=== PATIENT | male | born 1990 | race American Indian/Alaskan Native ===

== ENCOUNTER 2017-10-11 18:18 | Emergency (ER) | payer SELFPAY ==
[2017-10-11 18:27] VITALS: BP 147/91
--- NOTE | 2017-10-12 00:16 | Emergency Department Report ---
Abscess Boil HPI - HPI Chief Complaint: Skin/Abscess/Foreign Body Stated Complaint: ABSCESS Time Seen by Provider: 10/12/17 00:04 Duration: 3 Days Location: Upper Extremity (right axilla) Severity: Moderate History: Yes Pain, Yes Purulent Drainage, No Fever, No Numbness, No Foreign Body , No Previous History, No Insect Bite HPI: This is a 26-year-old -[place] male who presents with abscess to right axilla for 3 days. Patient reports shaving under arms 3 days ago and feeling small bump initially under right arm. He thought it was a hair bumpt that would resolve on it's own but it never did. This morning he noticed the bump under right axilla was swollen, erythematous, and pus drainage. It is very painful to touch. Pain is 10 out of 10 and worse with palpation. Denies fever, numbness or tingling, and foreign body sensation. Home Medications: Previous Rx's Medication Instructions Recorded Last Taken Type Ibuprofen 800 mg PO Q6H PRN #20 tablet 10/12/17 Unknown Rx Sulfamethoxazole/Trimethoprim 1 each PO BID 10 Days #20 tablet 10/12/17 Unknown Rx [Bactrim DS TAB] Allergies/Adverse Reactions: Allergies Allergy/AdvReac Type Severity Reaction Status Date / Time No Known Allergies Allergy Unverified 10/11/17 18:23 ED Review of Systems ROS: Stated complaint: ABSCESS Other details as noted in HPI Constitutional: denies: chills, fever Respiratory: denies: cough, shortness of breath, wheezing Cardiovascular: denies: chest pain, palpitations Gastrointestinal: denies: abdominal pain, nausea, diarrhea Skin: lesions (nodule on right axilla). denies: rash Neurological: denies: headache, weakness, paresthesias Psychiatric: denies: anxiety, depression ED Past Medical Hx - Past Medical History Previous Medical History?: No - Surgical History Past Surgical History?: No - Social History Smoking Status: Never Smoker Substance Use Type: None, Alcohol - Medications Home Medications: Home Medications Medication Instructions Recorded Confirmed Last Taken Type Ibuprofen 800 mg PO Q6H PRN #20 tablet 10/12/17 Unknown Rx Sulfamethoxazole/Trimethoprim 1 each PO BID 10 Days #20 tablet 10/12/17 Unknown Rx [Bactrim DS TAB] ED Abscess Boil Physical Exam - Exam General: Vital signs noted. No distress. Alert and acting appropriately. Front/Back of Body, Lg (Color): 1 - 2 cm erythematous nodule on right axilla, tender, purulent discharge, fluctuance, no surrounding cellulitis Size: 2 cm Exam: Yes Tenderness, Yes Fluctuance, Yes Normal Neurologic Exam, Yes Normal Circulation, No Surrounding Cellulites/Erythema, No Lymphangitis, No Crepitation , No Heart Murmur I & D Note - I & D Note I & D Note: The area was prepared and draped in the usual, sterile manner. The site was anesthetized with 2% lidocaine without epinephrine. A linear incision along the local skin lines was made and the purulent material expressed. The abcess was explored thoroughly and sequestered pockets were opened. Bleeding was minimal. Packing: idodoform. Followup: The patient tolerated the procedure well without complications. Standard post-procedure care was explained and return precautions are given. ED Course Vital Signs 10/11/17 18:23 Temperature 98.6 F Pulse Rate 89 Respiratory 18 Rate Blood Pressure 147/91 O2 Sat by Pulse 99 Oximetry Critical care attestation.: If time is entered above; I have spent that time in minutes in the direct care of this critically ill patient, excluding procedure time. ED Medical Decision Making - Medical Decision Making This is a 26 y.o. male that presents with a painful abscess to right axilla for 3 days. No history of prior abscess. Patient is stable and examined by me. Physical assessment of 2 cm fluctuance nodule to right axilla. No acute signs of distress noted. Given norco 7.5 mg po once in ER. I&D refer to note. Discussed plan to start bactrim DS and ibuprofen with patient. Educated patient on follow up plan to have packing removed and wound reassessed in 2-3 days. Educated on signs and symptoms of infection. Patient agrees to ED plan of care. Discharged home and follow up with PCP in 2-3 days. ED Disposition Clinical Impression: Abscess of axilla, right Disposition: DC- TO HOME OR SELFCARE Is pt being admited?: No Does the pt Need Aspirin: No Condition: Stable Instructions: Abscess (ED), Abscess Incision and Drainage (ED) Additional Instructions: Keep packing in place for 2-3 days. Return to ER or f/u with PCP to have packing removed and wound reassessed. Complete full round of bactrim DS antibiotic as prescribed. Follow up with PCP or ER in 2-3 days. Return to ER if foul smelling discharge, swelling, or severe pain to wound. Prescriptions: Ibuprofen 800 mg PO Q6H PRN #20 tablet PRN Reason: Pain Sulfamethoxazole/Trimethoprim [Bactrim DS TAB] 1 each PO BID 10 Days #20 tablet [facility]errals: [facility] [Outside] - 3-5 Days [facility] [Outside] - 3-5 Days [facility] [Outside] - 3-5 Days Forms: Work/School Release Form(ED) Time of Disposition: 01:28 Print Language: ARMENIAN
[2017-10-12] MEDS ORDERED: XYLOCAINE 2% INFILTRATI ONE (00:18)
[2017-10-12] MEDS ORDERED: ULTRAM PO ONE (00:18)
== END 2017-10-12 01:30 | disposition home or self-care (01) ==
LOC: ED 18:18
DX: L02.411 Cutaneous abscess of right axilla (principal)

== ENCOUNTER 2017-10-14 18:20 | Emergency (ER) | payer SELFPAY ==
--- NOTE | 2017-10-15 00:30 | Emergency Department Report ---
- General Chief Complaint: Skin/Abscess/Foreign Body Stated Complaint: ABCESS Time Seen by Provider: 10/14/17 23:44 Source: patient Mode of arrival: Ambulatory Limitations: No Limitations - History of Present Illness Initial Comments: 26-year-old returns to the emergency room to have this packing removed from right under arm. Patient was seen here on 10/12/2017 and had an abscess incision and drainage with packing. Patient was then placed on Bactrim which he reported had dropped all of them in the setting. Therefore patient has not taken any antibiotics as prescribed. Patient is not taking pain medication as prescribed. He is to be taken every 6-8 hours as needed for pain. -: days(s) (3) - Related Data Previous Rx's Medication Instructions Recorded Last Taken Type Ibuprofen 800 mg PO Q6H PRN #20 tablet 10/12/17 Unknown Rx Sulfamethoxazole/Trimethoprim 1 each PO BID 10 Days #20 tablet 10/15/17 Unknown Rx [Bactrim DS TAB] Allergies Allergy/AdvReac Type Severity Reaction Status Date / Time No Known Allergies Allergy Unverified 10/11/17 18:23 ED Review of Systems ROS: Stated complaint: ABCESS Other details as noted in HPI Constitutional: denies: chills, fever Skin: other (right axillary packing) ED Past Medical Hx - Past Medical History Previous Medical History?: No - Surgical History Past Surgical History?: No - Social History Smoking Status: Never Smoker Substance Use Type: None - Medications Home Medications: Home Medications Medication Instructions Recorded Confirmed Last Taken Type Ibuprofen 800 mg PO Q6H PRN #20 tablet 10/12/17 Unknown Rx Sulfamethoxazole/Trimethoprim 1 each PO BID 10 Days #20 tablet 10/15/17 Unknown Rx [Bactrim DS TAB] ED Physical Exam - General Limitations: No Limitations - Neurological Exam Neurological exam: Present: alert, oriented X3 - Psychiatric Psychiatric exam: Present: normal affect, normal mood - Skin Skin exam: Present: other (right axillary, packing noted with some discharge on the gauze. ) ED Course Vital Signs 10/14/17 18:35 Temperature 98.8 F Pulse Rate 83 Respiratory 16 Rate Blood Pressure 149/82 O2 Sat by Pulse 97 Oximetry - Procedure Description Procedures done: Removal of packing from the right axillary. And then packing of iodoform 1 inch packed into right axillary. Patient tolerated procedure well ED Medical Decision Making - Medical Decision Making Patient has been evaluated by this provider fast track. Packing removed from right axillary. Clean Packing placed to right axillary. Refilled of Bactrim since patient reports wasted in sink. Patient is to continue with ibuprofen as prescribed. Patient is to return in 3 days to have packing removed. Patient verbalizes understanding. Critical care attestation.: If time is entered above; I have spent that time in minutes in the direct care of this critically ill patient, excluding procedure time. ED Disposition Clinical Impression: Encounter for wound re-check, Abscess of axilla, right Disposition: DC-01 TO HOME OR SELFCARE Is pt being admited?: No Does the pt Need Aspirin: No Condition: Stable Instructions: Abscess (ED) Additional Instructions: Please complete antibiotics as prescribed. Please take pain medication as prescribed. Follow up in 3 days to have packing removal. Prescriptions: Sulfamethoxazole/Trimethoprim [Bactrim DS TAB] 1 each PO BID 10 Days #20 tablet Referrals: PRIMARY CARE, [Primary Care Provider] - 3-5 Days Forms: Work/School Release Form(ED)
[2017-10-15 00:35] VITALS: BP 144/80
== END 2017-10-15 00:34 | disposition home or self-care (01) ==
LOC: ED 18:20
DX: Z48.01 Encounter for change or removal of surgical wound dressing (principal)
CPT/HCPCS: 99282